=== PATIENT | male | born 1985 | race African-American/Black ===

== ENCOUNTER 2019-01-06 09:53 | Emergency (ER) | payer MEDICAID, OTHER ==
[~2019-01-06] VITALS: Ht 180.3 cm; Wt 95.0 kg
[2019-01-06] MEDS ORDERED: SODIUM CHLORIDE 0.9% 1,000 ML IV ONE (10:29)
[2019-01-06] MEDS ORDERED: LORAZEPAM 1MG TABLET PO ONE (10:30)
[2019-01-06 11:12] LABS: BASOPHILS % 0.4 % (0.0-2.0); CHLORIDE 108 mEq/L (98-107); EOSINOPHILS % 0.5 % (0.0-5.0); HEMATOCRIT. 36.4 % (42.0-52.0); HEMOGLOBIN. 11.7 g/dL (14.0-18.0); MEAN CORPUSCULAR HEMOGLOBIN 26.6 pg (28.0-32.0); MEAN CORPUSCULAR VOLUME 82.9 fL (80.0-94.0); MEAN PLATELET VOLUME 8.9 fl (7.4-10.4); MONOCYTES % 7.4 % (2.0-8.0); NEUTROPHILS % 81.7 % (40.0-76.0); PLATELET 269 x1000/uL (130-400); RED BLOOD CELL COUNT 4.39 mill/uL (4.7-6.1); RED CELL DISTRIBUTION WIDTH 15.7 % (11.6-14.6)
[2019-01-06 11:13] LABS: PROTHROMBIN TIME 10.7 sec (9.6-11.0)
[2019-01-06 11:16] LABS: ETHANOL BLOOD < 10 mg/dL
[2019-01-06] MEDS ORDERED: SULFAMETHOXAZOLE/TRIMETHOPRIM 800/160MG TABLET PO NR (11:45)
[2019-01-06] MEDS ORDERED: CEPHALEXIN 250MG CAPSULE PO NR (11:45)
[2019-01-06] MEDS ORDERED: POTASSIUM CHLORIDE 20MEQ TABLET SR PO NR (12:30)
[2019-01-06 17:45] VITALS: BP 128/77
[2019-01-06 19:12] LABS: *AMPHETAMINES SCREEN URINE PRESUMTIVE POSITIVE (NEGATIVE); *BARBITURATES SCREEN URINE NEGATIVE (NEGATIVE); *BENZODIAZEPINES SCREEN URINE NEGATIVE (NEGATIVE); *COCAINE SCREEN URINE NEGATIVE (NEGATIVE); CANNABINOID URINE SCREEN NEGATIVE (NEGATIVE); METHADONE URINE SCREEN NEGATIVE (NEGATIVE); OPIATES URINE SCREEN NEGATIVE (NEGATIVE); PHENCYCLIDINE URINE SCREEN NEGATIVE (NEGATIVE)
== END 2019-01-06 19:06 | disposition home or self-care (01) ==
LOC: ER 09:53
DX: M79.672 Pain in left foot (principal); M79.671 Pain in right foot; F15.10 Other stimulant abuse, uncomplicated; E11.9 Type 2 diabetes mellitus without complications
CPT/HCPCS: 36415; 73630; 80053; 80305; 80307; 80320; 80329; 85025; 85610; 99284; J7030; Z7610; G0480

== ENCOUNTER 2019-01-06 19:21 | Emergency (ER) | payer MEDICAID ==
[~2019-01-06] VITALS: Ht 172.7 cm; Wt 103.0 kg
[2019-01-07] MEDS ORDERED: KETOROLAC 30MG/ML VIAL IV ONE (07:30)
[2019-01-07] MEDS ORDERED: VANCOMYCIN 1 G PREMIX 200 ML IV SCH (07:30)
[2019-01-07 09:07] LABS: CHLORIDE 107 mEq/L (98-107)
[2019-01-07 12:45] LABS: BASOPHILS % 0.7 % (0.0-2.0); EOSINOPHILS % 1.8 % (0.0-5.0); HEMATOCRIT. 36.5 % (42.0-52.0); HEMOGLOBIN. 11.8 g/dL (14.0-18.0); LYMPHOCYTES % 20.7 % (20.0-50.0); MEAN CORPUSCULAR HEMOGLOBIN 26.9 pg (28.0-32.0); MEAN CORPUSCULAR VOLUME 82.9 fL (80.0-94.0); MEAN PLATELET VOLUME 9.2 fl (7.4-10.4); MONOCYTES % 9.2 % (2.0-8.0); NEUTROPHILS % 67.6 % (40.0-76.0); PLATELET 296 x1000/uL (130-400); RED CELL DISTRIBUTION WIDTH 15.5 % (11.6-14.6)
[2019-01-07] MEDS ORDERED: GABAPENTIN 100MG CAPSULE PO SCH (14:15)
[2019-01-07 21:06] VITALS: BP 122/86
== END 2019-01-07 21:16 | disposition home or self-care (01) ==
LOC: ER 19:21
DX: L03.116 Cellulitis of left lower limb (principal); L03.115 Cellulitis of right lower limb; I10 Essential (primary) hypertension; F15.10 Other stimulant abuse, uncomplicated; F17.210 Nicotine dependence, cigarettes, uncomplicated
CPT/HCPCS: 36415; 80048; 85025; 96365; 96375; 99283; J1885; J3370

== ENCOUNTER 2019-01-07 22:41 | Emergency (ER) | payer MEDICAID ==
[~2019-01-07] VITALS: Ht 180.3 cm; Wt 109.0 kg
[2019-01-08] MEDS ORDERED: DOXYCYCLINE HYCLATE 100MG CAPSULE PO ONE (07:15)
[2019-01-08] MEDS ORDERED: GABAPENTIN 100MG CAPSULE PO ONE (07:15)
[2019-01-08] MEDS ORDERED: CEPHALEXIN 250MG CAPSULE PO ONE (07:15)
[2019-01-08 17:44] VITALS: BP 128/76
[2019-01-09] MEDS ORDERED: GABAPENTIN 100MG CAPSULE PO ONE (06:30)
[2019-01-09] MEDS ORDERED: DOXYCYCLINE HYCLATE 100MG CAPSULE PO ONE (06:30)
[2019-01-09] MEDS ORDERED: CEPHALEXIN 250MG CAPSULE PO ONE (06:30)
== END 2019-01-08 23:20 | disposition home or self-care (01) ==
LOC: ER 22:41
DX: L03.116 Cellulitis of left lower limb (principal); L03.115 Cellulitis of right lower limb; E11.9 Type 2 diabetes mellitus without complications; I10 Essential (primary) hypertension; F15.10 Other stimulant abuse, uncomplicated; Z59.0 Homelessness
CPT/HCPCS: 99284

== ENCOUNTER 2019-05-12 04:43 | Emergency (ER) | payer MEDICAID ==
[~2019-05-12] VITALS: Ht 180.3 cm; Wt 109.0 kg
[2019-05-12] MEDS ORDERED: ACETAMINOPHEN 500MG TABLET PO ONE (07:00)
[2019-05-12] MEDS ORDERED: TETANUS, DIPHTHERIA, PERTUSSIS VAC/PF 0.5ML (>7YR OLD) IM ONE (07:00)
[2019-05-12 07:03] VITALS: BP 139/89
== END 2019-05-12 07:09 | disposition home or self-care (01) ==
LOC: ER 04:43
DX: S61.012A Laceration without foreign body of left thumb without damage to nail, initial encounter (principal); W26.0XXA Contact with knife, initial encounter; Y93.89 Activity, other specified; Y92.018 Other place in single-family (private) house as the place of occurrence of the external cause
CPT/HCPCS: 90471; 90715; 99283; Z7610

== ENCOUNTER 2019-07-06 15:05 | Emergency (ER) | payer MEDICAID ==
[~2019-07-06] VITALS: Ht 175.3 cm; Wt 87.0 kg
[2019-07-06] MEDS ORDERED: AMOXICILLIN/POTASSIUM CLAVULANATE 875/125MG TAB PO ONE (16:30)
[2019-07-06] MEDS ORDERED: IBUPROFEN 600MG TABLET PO ONE (16:30)
[2019-07-06 17:04] VITALS: BP 141/91
== END 2019-07-06 17:17 | disposition home or self-care (01) ==
LOC: ER 15:05
DX: K02.9 Dental caries, unspecified (principal)
CPT/HCPCS: 99283